=== PATIENT | male | born 1950 | race Caucasian/White ===

== ENCOUNTER → 2016-02-27 | Outpatient (CLI) | payer MEDICARE, OTHER ==
--- NOTE | 2016-02-27 12:30 | XR ---
EXAMINATION TYPE: XR chest 2V DATE OF EXAM: 02/27/2016 11:37 AM COMPARISON: None HISTORY: 65-year-old male with cough TECHNIQUE: Frontal and lateral views FINDINGS: The cardiomediastinal silhouette, aorta, and pulmonary vasculature are within normal limits. There is focal airspace opacity in the right upper lobe marginated by the minor fissure. Some surgical clips noted in the left axilla. Remainder of the lungs and pleural spaces are clear. IMPRESSION: Right upper lobe airspace disease suspicious for pneumonia. Follow-up after treatment to ensure resol ution.
== END | disposition home or self-care (01) ==
LOC: RADXRMAIN 11:08
PROVIDERS: ATTEND Family Medicine
DX: R05 Cough (principal)
CPT/HCPCS: 71020

== ENCOUNTER 2017-04-28 08:23 | Day surgery (SDC) | payer MEDICARE, OTHER ==
[2017-04-26 12:27] VITALS: BMI 28.1
[~2017-04-28 08:23] MED LIST: LACTATED RINGERS 1,000 ML IV SCH
[2017-04-28 08:43] VITALS: RESP 16; TEMP 96.8
[2017-04-28] MEDS ORDERED: LIDOCAINE 1% 20 ML VIAL (10MG/ML) FOR IV START INTRADERMA ONE (08:50)
[2017-04-28 08:51] LABS: Glucose,Whole Blood 175 mg/dL (75-99)
--- NOTE | 2017-04-28 08:55 | P.GSHP ---
History of Present Illness H&P Date: 04/28/17 CHIEF COMPLAINT: Colon screen HISTORY OF PRESENT ILLNESS: The patient is a 67-year-old male who presents for colon screen. Lower endoscopy was offered for further evaluation and management. PAST MEDICAL HISTORY: Please see list. PAST SURGICAL HISTORY: Please see list. MEDICATIONS: Please see list. ALLERGIES: Please see list. SOCIAL HISTORY: No illicit drug use FAMILY HISTORY: No reports of Crohn disease or ulcerative colitis. REVIEW OF ORGAN SYSTEMS: CONSTITUTIONAL: No reports of fevers or chills. PHYSICAL EXAM: VITAL SIGNS: Stable GENERAL: Well-developed pleasant in no acute distress. HEENT: No scleral icterus. Extraocular movements grossly intact. Moist buccal mucosa. NECK: Supple without lymphadenopathy. CHEST: Unlabored respirations. Equal bilateral excursions. CARDIOVASCULAR: Regular rate and rhythm. Distal 2+ pulses. ABDOMEN: Soft, nontender, nondistended. MUSCULOSKELETAL: No clubbing, cyanosis, or edema. ASSESSMENT: 1. Colon screen. PLAN: 1. Recommend proceeding with a lower endoscopy Past Medical History Past Medical History: Cancer, COPD, Diabetes Mellitus, Hyperlipidemia, Pneumonia Additional Past Medical History / Comment(s): hx. rectal cancer 12 yrs. 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 frequent pneumonia-last time 2016, hand tremors History of Any Multi-Drug Resistant Organisms: None Reported Past Surgical History: Appendectomy, Bowel Resection Additional Past Surgical History / Comment(s): penile surg., colostomy Past Anesthesia/Blood Transfusion Reactions: No Reported Reaction Smoking Status: Former smoker - Past Family History Brother(s) Family Medical History: Cancer Sister(s) Family Medical History: Cancer Medications and Allergies Home Medications Medication Instructions Recorded Confirmed Type Aspirin 81 mg PO DAILY 04/26/17 04/28/17 History glyBURIDE,MICRONIZED [Glynase] 18 mg PO BID 04/26/17 04/28/17 History metFORMIN HCL [Glucophage] 1,000 mg PO BID 04/26/17 04/28/17 History sitaGLIPtin [Januvia] 25 mg PO BID 04/26/17 04/28/17 History Loratadine [Claritin] 10 mg PO DAILY 04/27/17 04/28/17 History Simvastatin [Zocor] 10 mg PO HS 04/27/17 04/28/17 History Allergies Allergy/AdvReac Type Severity Reaction Status Date / Time No Known Allergies Allergy Verified 04/26/17 12:02 Surgical - Exam Vital Signs Temp Pulse Resp BP Pulse Ox 96.8 F L 89 16 145/83 96 04/28/17 08:35 04/28/17 08:35 04/28/17 08:35 04/28/17 08:35 04/28/17 08:35 Results - Labs Abnormal Lab Results - Last 24 Hours (Table) 04/28/17 Range/Units 08:47 POC Glucose (mg/dL) 175 H (75-99) mg/dL
[2017-04-28] MEDS ORDERED: PROPOFOL 10 MG/ML 20 ML VIAL IV ONE (09:19)
--- NOTE | 2017-04-28 09:43 | P.PCN ---
Date of Procedure: 04/28/17 Description of Procedure: PREOPERATIVE DIAGNOSIS: History of rectal cancer Descending colostomy status Colonoscopy surveillance POSTOPERATIVE DIAGNOSIS: History of rectal cancer Descending colostomy status Colonoscopy surveillance OPERATION: Colonoscopy through descending colostomy to appendiceal orifice. SURGEON: Yanira Moreau MD. ANESTHESIA: MAC. INDICATIONS: The patient is a 67-year-old male who presents for colonoscopy following rectal cancer and descending colostomy, 2013. Benefits and risks were described and informed consent was obtained. DESCRIPTION OF PROCEDURE: The patient had undergone Gatorade, MiraLAX and Dulcolax prep. He had been brought into the operating room and laid supine. The stoma appliance was removed. An Olympus colonoscope was advanced through the descending colostomy to the appendiceal orifice. The prep was excellent with clear visualization of the mucosal folds. The scope was removed with visualization of each mucosal fold. No scattered diverticulosis was encountered. No colonic polyps were found. No evidence of focal colitis was found. The colon was desufflated. The patient was transitioned in the left lateral decubitus position where along the previous anus, no palpable tumors were identified. His stoma appliance was applied. The patient had tolerated the procedure well. Withdrawal time was over 6 minutes. FINDINGS: No arteriovenous malformations. No adenomatous polyps. No focal colitis. RECOMMENDATIONS: Lower endoscopy in one year, 2019. Plan - Discharge Summary New Discharge Prescriptions: No Action sitaGLIPtin [Januvia] 25 mg PO BID metFORMIN HCL [Glucophage] 1,000 mg PO BID glyBURIDE,MICRONIZED [Glynase] 18 mg PO BID Aspirin 81 mg PO DAILY Simvastatin [Zocor] 10 mg PO HS Loratadine [Claritin] 10 mg PO DAILY Discharge Medication List Aspirin 81 mg PO DAILY 04/26/17 [History] glyBURIDE,MICRONIZED [Glynase] 18 mg PO BID 04/26/17 [History] metFORMIN HCL [Glucophage] 1,000 mg PO BID 04/26/17 [History] sitaGLIPtin [Januvia] 25 mg PO BID 04/26/17 [History] Loratadine [Claritin] 10 mg PO DAILY 04/27/17 [History] Simvastatin [Zocor] 10 mg PO HS 04/27/17 [History]
[2017-04-28 10:01] VITALS: BP 128/68; PULSE 80
== END 2017-04-28 10:17 | disposition home or self-care (01) ==
LOC: ORWHC2ENDO 08:23
PROVIDERS: ATTEND Surgery Plastic and Reconstructive Surgery
DX: Z12.11 Encounter for screening for malignant neoplasm of colon (principal); Z85.048 Personal history of other malignant neoplasm of rectum, rectosigmoid junction, and anus; Z93.3 Colostomy status; J44.9 Chronic obstructive pulmonary disease, unspecified; E78.5 Hyperlipidemia, unspecified; Z85.59 Personal history of malignant neoplasm of other urinary tract organ; E11.9 Type 2 diabetes mellitus without complications; Z79.84 Long term (current) use of oral hypoglycemic drugs; Z87.891 Personal history of nicotine dependence; Z79.82 Long term (current) use of aspirin; Z79.899 Other long term (current) drug therapy
CPT/HCPCS: 44388; J2704

== ENCOUNTER → 2017-06-04 | Outpatient (CLI) | payer MEDICARE, OTHER ==
[2017-06-04 11:08] LABS: ALT 18 U/L (21-72); AST 15 U/L (17-59); Alkaline Phosphatase 51 U/L (38-126); Anion Gap 10 mmol/L; Blood Urea Nitrogen 18 mg/dL (9-20); Calcium 9.5 mg/dL (8.4-10.2); Carbon Dioxide 27 mmol/L (22-30); Chloride 102 mmol/L (98-107); Glucose 186 mg/dL (74-99); Potassium 4.6 mmol/L (3.5-5.1); Sodium 139 mmol/L (137-145); Total Bilirubin 0.4 mg/dL (0.2-1.3); Total Protein 6.3 g/dL (6.3-8.2)
[2017-06-04 11:23] LABS: T4, Free (Free Thyroxine) 0.93 ng/dL (0.78-2.19)
== END | disposition home or self-care (01) ==
LOC: LABWHC1 10:04
PROVIDERS: ATTEND Psychiatry & Neurology Neurology
DX: R25.1 Tremor, unspecified (principal)
CPT/HCPCS: 36415; 80053; 82390; 82525; 84439; 84443

== ENCOUNTER → 2020-01-19 | Outpatient (CLI) | payer MEDICARE ==
[2020-01-19 16:11] LABS: African American GFR (CKD) >90 (>60 ml/min/1.73 sqM); Blood Urea Nitrogen 9 mg/dL (9-20); Non-African American GFR(CKD) >90 (>60 ml/min/1.73 sqM)
--- NOTE | 2020-01-19 22:22 | CT ---
EXAMINATION TYPE: CT chest w con DATE OF EXAM: 01/19/2020 COMPARISON: None HISTORY: Chronic cough. CT DLP: 266.6 mGycm, Automated exposure control for dose reduction was used. CONTRAST: Performed injected with 100ml mL of Isovue 300. TECHNIQUE: Axial images were obtained at 5 mm thick sections. Reconstructed images are reviewed on Drimki computer in the coronal plane. FINDINGS: Portion of the thyroid visualized is normal. There is a 1.3 cm groundglass opacity in the posterior right lung. Additional workup is recommended w ith PET CT. Series 4 image 35. No enlarged mediastinal or hilar adenopathy is evident. The ascending aorta diameter at the level o f the main pulmonary artery is 3.6 cm. The main pulmonary artery diameter at the bifurcation is 3.[address] sections are obtained through the upper abdomen. Abdomen is essentially unremarkable. IMPRESSIONS: 1. Groundglass opacity posterior left midlung. Additional workup with PET CT is recommended.
== END | disposition home or self-care (01) ==
LOC: RADCTMAIN 15:41
PROVIDERS: ATTEND Internal Medicine
DX: R91.8 Other nonspecific abnormal finding of lung field (principal); R05 Cough
CPT/HCPCS: 82565; 84520; 71260; 36415; Q9967

== ENCOUNTER → 2020-02-10 | Outpatient (CLI) | payer MEDICARE ==
--- NOTE | 2020-02-10 13:03 | PE ---
EXAMINATION TYPE: PET CT fusion skull to thigh DATE OF EXAM: 02/10/2020 COMPARISON: Chest CT January 19, 2020 HISTORY: Solitary pulmonary nodule TECHNIQUE: Following the intravenous administration of mCi of F-18 FDG, whole body images are perfor med from the skull base to the midthigh. Images are reviewed on the computer in the coronal, axial, and sagittal planes. Reconstructed rotating images are created on independent workstation and review ed on the computer. A noncontrast CT is performed in conjunction with the PET scan. SCAN: Initial Scan FINDINGS: SKULL BASE AND NECK: No suspicious hypermetabolic uptake. CHEST, MEDIASTINUM, AND HILAR REGION: Mild underlying emphysematous change redemonstrated. Area of 1. 3 cm groundglass opacity posterior right upper lung shows some improvement with a residual 7 mm groun dglass nodule axis image 87. No suspicious hypermetabolic uptake. No abnormal hypermetabolic uptake i n the entire thorax. ABDOMEN AND PELVIS: Normal excretion. No adrenal masses. No suspicious hypermetabolic uptake. OSSEOUS STRUCTURES: No suspicious hypermetabolic uptake. OTHER CT: Judu-ca-adbdfuph calcified plaque bilateral carotid bulb level. Tiny pericardial effusion. Coronary artery calcification and stents. Left mid abdominal ostomy. Moderate calcified plaque of the abdominal aorta. Mildly enlarged prostate bulging on bladder base. Multilevel spurring in the spine. Underlying scoliotic curvature. Facet arthropathy lower lumbar leve ls. IMPRESSION: No suspicious hypermetabolic uptake to suggest neoplasm. Consider follow-up CT in 6-12 mo nths time to reassess greater than 6 mm groundglass nodule as per Fleischner Society recommendations.
== END | disposition home or self-care (01) ==
LOC: RADPETMAIN 09:09
PROVIDERS: ATTEND Internal Medicine
DX: R91.1 Solitary pulmonary nodule (principal)
CPT/HCPCS: 78815; A9552

== ENCOUNTER → 2021-03-01 | Outpatient (CLI) | payer MEDICARE ==
--- NOTE | 2021-03-01 22:54 | MR ---
MR brain without contrast HISTORY: Memory loss Multiplanar multisequence imaging through the brain No comparisons There is no restricted diffusion. Cortical atrophy is present. Confluent and scattered hyperintensiti es present in the periventricular and subcortical white matter on inversion recovery T2-weighted sequ ences. Hyperintensity also present within the kenzie. There is no hemorrhage or hydrocephalus. Corpus c allosum, pituitary, cervical medullary junction are within normal limits. There are expected vascular flow voids. Mild inflammatory change present within the ethmoid air cells. The orbits show symmetric appearance. Cerebellopontine angles are unremarkable. IMPRESSION: Age-related changes of atrophy and chronic small vessel ischemia. Mild sinus disease.
== END | disposition home or self-care (01) ==
LOC: RADMRIMAIN 14:54
PROVIDERS: ATTEND Psychiatry & Neurology Neurology
DX: I67.82 Cerebral ischemia (principal); G31.9 Degenerative disease of nervous system, unspecified
CPT/HCPCS: 70551

== ENCOUNTER 2022-08-20 06:37 | Day surgery (SDC) | payer MEDICARE ==
[2022-08-17 13:50] VITALS: BMI 23.6
[2022-08-20 07:12] VITALS: TEMP 97.7
[2022-08-20 07:12] LABS: Glucose,Whole Blood 157 mg/dL (70-110)
[2022-08-20] MEDS ORDERED: LACTATED RINGERS 1,000 ML IV ONE ×2 (07:12)
--- NOTE | 2022-08-20 07:36 | P.GSHP ---
History of Present Illness H&P Date: 08/20/22 CHIEF COMPLAINT: GERD and colon screen HISTORY OF PRESENT ILLNESS: The patient is a 72-year-old male who presents with gastroesophageal reflux disease and need for colon screen. Upper and lower endoscopy were offered for further evaluation and management. PAST MEDICAL HISTORY: Please see list. PAST SURGICAL HISTORY: Please see list. MEDICATIONS: Please see list. ALLERGIES: Please see list. SOCIAL HISTORY: No illicit drug use FAMILY HISTORY: No reports of Crohn disease or ulcerative colitis. REVIEW OF ORGAN SYSTEMS: CONSTITUTIONAL: No reports of fevers or chills. GI: Denies any blood in stools or constipation. PHYSICAL EXAM: VITAL SIGNS: Stable GENERAL: Well-developed pleasant in no acute distress. HEENT: No scleral icterus. Extraocular movements grossly intact. Moist buccal mucosa. NECK: Supple without lymphadenopathy. CHEST: Unlabored respirations. Equal bilateral excursions. CARDIOVASCULAR: Regular rate and rhythm. Distal 2+ pulses. ABDOMEN: Soft, nondistended. MUSCULOSKELETAL: No clubbing, cyanosis, or edema. ASSESSMENT: 1. Gastroesophageal reflux disease 2. Colon screen. PLAN: 1. Recommend proceeding with an upper and lower endoscopy Past Medical History Past Medical History: Cancer, COPD, Diabetes Mellitus, Hyperlipidemia, Pneumonia Additional Past Medical History / Comment(s): hx. rectal cancer 12 yrs. 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 frequent pneumonia-last time 2016, hand tremors History of Any Multi-Drug Resistant Organisms: None Reported Past Surgical History: Appendectomy, Bowel Resection Additional Past Surgical History / Comment(s): penile surg., colostomy. COLONOSCOPY Past Anesthesia/Blood Transfusion Reactions: No Reported Reaction Smoking Status: Former smoker - Past Family History Brother(s) Family Medical History: Cancer Sister(s) Family Medical History: Cancer Medications and Allergies Home Medications Medication Instructions Recorded Confirmed Type metFORMIN HCL [Glucophage] 1,000 mg PO BID 04/26/17 08/17/22 History Simvastatin [Zocor] 10 mg PO HS 04/27/17 08/17/22 History Cholecalciferol [Vitamin D3 (25 25 mcg PO DAILY 08/17/22 08/17/22 History Mcg = 1000 Iu)] Escitalopram [Lexapro] 10 mg PO DAILY 08/17/22 08/17/22 History Propranolol HCl [Inderal] 60 mg PO DAILY 08/17/22 08/17/22 History glipiZIDE [Glucotrol] 5 mg PO AC-BID 08/17/22 08/17/22 History sitaGLIPtin [Januvia] 50 mg PO BID 08/17/22 08/17/22 History Allergies Allergy/AdvReac Type Severity Reaction Status Date / Time No Known Allergies Allergy Verified 08/17/22 13:38 Surgical - Exam Vital Signs Temp Pulse Resp BP Pulse Ox 97.7 F 105 H 18 135/84 95 08/20/22 07:10 08/20/22 07:10 08/20/22 07:10 08/20/22 07:10 08/20/22 07:10 Results - Labs Abnormal Lab Results - Last 24 Hours (Table) 08/20/22 Range/Units 07:07 POC Glucose (mg/dL) 157 H (70-110) mg/dL
[2022-08-20] MEDS ORDERED: PROPOFOL 10 MG/ML 20 ML VIAL IV ONE (07:49)
[2022-08-20 08:50] VITALS: BP 120/73; PULSE 92; RESP 20
--- NOTE | 2022-08-20 08:51 | P.PCN ---
Date of Procedure: 08/20/22 Description of Procedure: PREOPERATIVE DIAGNOSIS: GI bleed POSTOPERATIVE DIAGNOSIS: Gastric ulcers with bleeding, acute Gastritis with bleeding Duodenal polyp Diaphragmatic hiatal hernia OPERATION: Esophagogastroduodenoscopy with biopsies along antrum and duodenum SURGEON: Yanira Moreau MD ANESTHESIA: MAC. INDICATIONS: The patient is a 72-year-old male who presents with epigastric pain and GI bleed. Benefits and risks of the procedure were described. Informed consent was obtained. DESCRIPTION: The patient was brought into the endoscopy suite and laid in the left lateral decubitus position. An Olympus gastroscope was passed along the posterior oropharynx down to the distal esophagus where the squamocolumnar junction was encountered at 40 cm from the incisors. The stomach was entered and no bile reflux was found. Additional findings are listed below. Biopsies with cold forceps were obtained of the antrum. The first through third portion of the duodenum was examined. Retroflexion of the scope confirmed Hill grade 3 lower esophageal valve. The squamocolumnar junction demonstrated LA grade B erosive esophagitis. The stomach was desufflated. The patient tolerated the procedure well. FINDINGS: Squamocolumnar junction 40 cm from the incisors. Diaphragmatic hiatus at 43 cm. Hiatal hernia, 3 cm Hill grade 4 lower esophageal valve. LA grade C erosive esophagitis. Biopsies obtained of the duodenum. Chronic gastritis with biopsies obtained. Possible gastric ulcers identified. Duodenum polyps at first portion of duodenum, biopsies obtained RECOMMENDATIONS: Recommend Protonix 40 mg daily Recommend Carafate 40 mg twice daily
--- NOTE | 2022-08-20 08:52 | P.PCN ---
Date of Procedure: 08/20/22 Description of Procedure: PREOPERATIVE DIAGNOSIS: History of rectal cancer Descending colostomy status Colonoscopy surveillance POSTOPERATIVE DIAGNOSIS: History of rectal cancer Descending colostomy status Colonoscopy surveillance Varicose veins of the colon OPERATION: Colonoscopy through descending colostomy to appendiceal orifice. Colonoscopy with snare polypectomy SURGEON: Yanira Moreau MD. ANESTHESIA: MAC. INDICATIONS: The patient is a 72-year-old male who presents for colonoscopy following rectal cancer and descending colostomy. Benefits and risks were described and informed consent was obtained. DESCRIPTION OF PROCEDURE: The patient had undergone Suprep. He had been brought into the operating room and laid supine. The stoma appliance was removed. An Olympus colonoscope was advanced through the descending colostomy to the appendiceal orifice. The prep was good. The scope was removed with visualization of each mucosal fold. No scattered diverticulosis was encountered. No colonic polyps were found. No evidence of focal colitis was found. The colon was desufflated. The patient was transitioned in the left lateral decubitus position where along the previous anus, no palpable tumors were identified. His stoma appliance was applied. The patient had tolerated the procedure well. Withdrawal time was over 6 minutes. FINDINGS: Aronchik preparation quality scale 2 (1-5) No arteriovenous malformations. Removal of 2 polyps: - Snare polypectomy at ascending colon, 7 mm, adenoma Dilated venous vessels of the descending colon. No focal colitis. Anus absent due to prior cancer. RECOMMENDATIONS: Lower endoscopy in 2 years, 2024 Plan - Discharge Summary Discharge Rx Participant: No New Discharge Prescriptions: New Pantoprazole [Protonix] 40 mg PO DAILY #14 tab Sucralfate [Carafate] 1 gm PO BID #30 tablet Continue metFORMIN HCL [Glucophage] 1,000 mg PO BID Simvastatin [Zocor] 10 mg PO HS Escitalopram [Lexapro] 10 mg PO DAILY Propranolol HCl [Inderal] 60 mg PO DAILY glipiZIDE [Glucotrol] 5 mg PO AC-BID Cholecalciferol [Vitamin D3 (25 Mcg = 1000 Iu)] 25 mcg PO DAILY sitaGLIPtin [Januvia] 50 mg PO BID Discharge Medication List metFORMIN HCL [Glucophage] 1,000 mg PO BID 04/26/17 [History] Simvastatin [Zocor] 10 mg PO HS 04/27/17 [History] Cholecalciferol [Vitamin D3 (25 Mcg = 1000 Iu)] 25 mcg PO DAILY 08/17/22 [History] Escitalopram [Lexapro] 10 mg PO DAILY 08/17/22 [History] Propranolol HCl [Inderal] 60 mg PO DAILY 08/17/22 [History] glipiZIDE [Glucotrol] 5 mg PO AC-BID 08/17/22 [History] sitaGLIPtin [Januvia] 50 mg PO BID 08/17/22 [History] Pantoprazole [Protonix] 40 mg PO DAILY #14 tab 08/20/22 [Rx] Sucralfate [Carafate] 1 gm PO BID #30 tablet 08/20/22 [Rx] Follow up Appointment(s)/Referral(s): Yanira Moreau MD [STAFF PHYSICIAN] - 10/06/22 10:45 am Patient Instructions/Handouts: *Surgery [facility] - (Anesthesia) Discharge Instructions Outpatient Surgery, Peptic Ulcer (DC), Diet for Stomach Ulcers and Gastritis (ED), Colorectal Polyps (GEN) Activity/Diet/Wound Care/Special Instructions: Repeat colonoscopy 2 years, 2024 Discharge Disposition: HOME SELF-CARE
== END 2022-08-20 09:30 | disposition home or self-care (01) ==
LOC: ORWHC2ENDO 06:37
PROVIDERS: ATTEND Surgery Plastic and Reconstructive Surgery
DX: Z12.11 Encounter for screening for malignant neoplasm of colon (principal); D12.2 Benign neoplasm of ascending colon; Z85.048 Personal history of other malignant neoplasm of rectum, rectosigmoid junction, and anus; Z93.3 Colostomy status; I86.8 Varicose veins of other specified sites; K25.0 Acute gastric ulcer with hemorrhage; K29.71 Gastritis, unspecified, with bleeding; K31.7 Polyp of stomach and duodenum; K44.9 Diaphragmatic hernia without obstruction or gangrene; K21.9 Gastro-esophageal reflux disease without esophagitis; J44.9 Chronic obstructive pulmonary disease, unspecified; E11.9 Type 2 diabetes mellitus without complications; E78.5 Hyperlipidemia, unspecified; Z92.21 Personal history of antineoplastic chemotherapy; Z92.3 Personal history of irradiation; Z90.49 Acquired absence of other specified parts of digestive tract; Z87.891 Personal history of nicotine dependence; Z79.84 Long term (current) use of oral hypoglycemic drugs; Z79.899 Other long term (current) drug therapy
CPT/HCPCS: 88305; 44394; 43239; J2704

== ENCOUNTER → 2023-01-25 | Outpatient (CLI) | payer MEDICARE ==
[2023-01-25 11:22] LABS: African American GFR (CKD) >90 (>60 ml/min/1.73 sqM); Blood Urea Nitrogen 16 mg/dL (9-20); Non-African American GFR(CKD) >90 (>60 ml/min/1.73 sqM)
--- NOTE | 2023-01-26 13:07 | CT ---
EXAMINATION TYPE: CT chest w con CT DLP: 358.3 mGycm, Automated exposure control for dose reduction was used. DATE OF EXAM: 01/25/2023 11:49 AM COMPARISON: 2V chest x-ray 01/14/2023. PET CT 02/10/2020. CT chest 01/19/2020. CLINICAL INDICATION:Male, 72 years old with history of R91.9 SOLITARY PULMONARY NODULE; PHH, lung nod ule. Technologist reports lung nodule, cough, wheezing, history of colon cancer TECHNIQUE: Multiple axial images were obtained through the chest. Sagittal and coronal reformats were created for review. Contrast used:100 mL of Isovue 300 with IV Contrast (None if empty) Oral contrast used: (None if empty) FINDINGS: LOWER NECK: No significant findings. HEART: Upper normal in size.. Moderate to heavy coronary arterial calcifications and/or stents. Trace pericardial effusion. VASCULATURE: Atherosclerotic calcifications are present throughout the aorta and its branches. No a neurysm or dissection. Grossly preserved enhancement of the pulmonary arteries in the limits of the e xam. The main pulmonary artery is mildly enlarged at 3.1 cm, this can be seen with pulmonary hyperten rajni. MEDIASTINUM: No gross evidence of adenopathy. LUNGS/ PLEURA: Moderate emphysematous changes, prominently biapical. Mild bibasilar scarring or subse gmental atelectasis. No evidence of lung mass or acute infiltrate. There are small reticulonodular ch anges at the lung apices with the appearance of scarring. In the right lower lobe there is a 4 mm nod ule image 41 series 5 which appears relatively radiodense and might be a granuloma; this is also stab le since 2020 consistent with a benign lesion. In the left lower lobe, tiny 2 mm subpleural nodule im age 51 is not clearly seen in 2020 however no specific follow-up is recommended given the small size. Also in 2020, there had been a 1.3 cm groundglass opacity in the left lower lobe, this has completel y resolved since then. AIRWAY: Central airways patent and unremarkable. MUSCULOSKELETAL: Mild degenerative changes of the dorsal spine. No acute abnormality or lytic/blasti c bone lesion. SOFT TISSUES: Surgical clips in the left axilla. Nonenlarged axillary nodes. UPPER ABDOMEN: Visualized liver shows no evidence of mass. Mildly thickened appearance of the adrenal s without evidence of mass, hyperplasia is a consideration. Mild/moderate atherosclerotic disease of the upper abdominal aorta, with mild to moderate stenosis at the origin of the celiac artery. SMA is widely patent. Right renal artery is patent. Proximal left renal artery shows mild/moderate stenosis. No aortic aneurysm shown. IMPRESSION: 1. Moderate biapical pulmonary emphysema. 2. A 1.3 cm groundglass opacity in the left lower lobe identified in 2019 has completely resolved si nce then. A stable 4 mm nodule in the right lower lobe is consistent with benignity, likely granuloma . 3. Tiny 2 mm nodule in the left lower lobe, not clearly present before. However no specific follow-u p is recommended given its small size. 4. There is otherwise no evidence of malignancy/metastasis or acute process in the chest. 5. Other chronic and likely incidental findings, as described above.
== END | disposition home or self-care (01) ==
LOC: RADCTMAIN 10:44
PROVIDERS: ATTEND Internal Medicine
DX: J43.9 Emphysema, unspecified (principal); R91.8 Other nonspecific abnormal finding of lung field
CPT/HCPCS: 82565; 84520; 71260; 36415; Q9967

== ENCOUNTER 2023-04-19 06:12 | Day surgery (SDC) | payer MEDICARE, OTHER ==
[2023-04-15 11:20] VITALS: BMI 25.1
[~2023-04-19 06:12] MED LIST changes: -LACTATED RINGERS 1,000 ML IV SCH; +LIDOCAINE 1% (10MG/ML) FOR IV START INTRADERMA PRN
[2023-04-19] MEDS: LACTATED RINGERS 1,000 ML IV SCH (06:49)
[2023-04-19] MEDS ORDERED: LIDOCAINE 1% INJ 10MG/ML (20 ML MDV) ONE (07:11)
[2023-04-19] MEDS ORDERED: PROPOFOL 10 MG/ML 20 ML VIAL IV ONE (07:11)
[2023-04-19 07:16] LABS: Glucose,Whole Blood 180 mg/dL (70-110)
[2023-04-19 07:38] VITALS: RESP 16; TEMP 97.8
[2023-04-19 07:46] LABS: Glucose,Whole Blood 150 mg/dL (70-110)
--- NOTE | 2023-04-19 07:51 | OP ---
OPERATIVE REPORT DATE OF SERVICE : PROCEDURE PERFORMED: Bone marrow biopsy with aspiration under local and general sedation. DESCRIPTION OF PROCEDURE: After being placed in the left lateral decubitus position, the right posterior iliac spine was palpated, followed by palpation of the right posterior iliac crest, following administration of general sedation. The area was sterilized with three swabs of Betadine and three swabs of alcohol, sterile drape was then placed. 10 mL of 1% lidocaine was applied to the periosteum. A 0.3 cm incision was then made into the skin, 4-inch Jamshidi needle was then advanced through the periosteum and then into the bone marrow, where approximately 18 mL of aspirate was obtained along with a 0.7 cm core sample. These will be sent for morphology, flow cytometry, cytogenetics, FISH, and NGS testing. We will follow up on the results in clinic. There was less than 1 mL of blood loss. Mr. Tam tolerated the procedure without complications and was returned to postop in stable condition. PREOPERATIVE DIAGNOSIS: Thrombocytopenia. POSTOPERATIVE DIAGNOSIS: Thrombocytopenia. MMODL / IJN: [id number] /
[2023-04-19 08:03] LABS: HGB 12.4 gm/dL (13.0-17.5); MCHC 32.5 g/dL (31.0-37.0); MCV 89.3 fL (80.0-100.0); Mean Platelet Volume 11.6; RBC 4.26 m/uL (4.30-5.90); RDW 15.1 % (11.5-15.5); WBC 9.1 k/uL (3.8-10.6)
[2023-04-19 08:13] VITALS: BP 136/85; PULSE 67
[2023-04-19 08:24] LABS: Platelet Count 98 k/uL (150-450)
[2023-04-19 08:29] LABS: Reticulocyte % 1.4 % (0.5-2.0)
[2023-04-19 08:48] LABS: HGB 12.4 gm/dL (13.0-17.5); MCHC 32.5 g/dL (31.0-37.0); MCV 89.3 fL (80.0-100.0); Platelet Count 98 k/uL (150-450); RBC 4.26 m/uL (4.30-5.90); RDW 15.1 % (11.5-15.5); WBC 9.1 k/uL (3.8-10.6)
[2023-04-19 08:49] LABS: Reticulocyte % 1.4 % (0.5-2.0)
[2023-04-19 09:05] LABS: Eosinophils # (M) 0.09 k/uL (0-0.7); Lymphocytes # (M) 1.73 k/uL (1.0-4.8); Monocytes # (M) 1.55 k/uL (0-1.0); Neutrophils # (M) 5.73 k/uL (1.3-7.7); Neutrophils % (M) 63 %; Nucleated Red Blood Cells 0 /100 WBC (0-0); RBC Morphology Normal; Total Cells Counted 100
== END 2023-04-19 08:20 | disposition home or self-care (01) ==
LOC: OR 06:12
PROVIDERS: ATTEND Internal Medicine
DX: D69.6 Thrombocytopenia, unspecified (principal); E11.9 Type 2 diabetes mellitus without complications; F03.90 Unspecified dementia, unspecified severity, without behavioral disturbance, psychotic disturbance, mood disturbance, and anxiety; Z79.84 Long term (current) use of oral hypoglycemic drugs; Z85.6 Personal history of leukemia; Z79.899 Other long term (current) drug therapy
CPT/HCPCS: 85025; 85045; 38222; J2001; J2704

== ENCOUNTER → 2023-05-14 | Outpatient (CLI) | payer OTHER ==
--- NOTE | 2023-05-14 09:51 | US ---
EXAMINATION TYPE: US abdomen complete DATE OF EXAM: 05/14/2023 COMPARISON: NONE CLINICAL INDICATION: Male, 73 years old with history of C20 RECTAL CA; TECHNIQUE: Multiple sonographic images of the abdomen are obtained. FINDINGS: EXAM MEASUREMENTS: Liver Length: 17.1 cm Gallbladder Wall: 0.2 cm CBD: 0.3 cm Spleen: 8.8 cm Right Kidney: 10.4 x 5.6 x 4.7 cm Left Kidney: 11.4 x 5.8 x 5.3 cm Pancreas: visualized portions wnl, limited by overlying midline bowel gas Liver: wnl Gallbladder: wnl Evidence for sonographic Caputo's sign: no CBD: visualized portions wnl, limited by overlying bowel gas Spleen: visualized portions wnl, limited by overlying midline bowel gas Right Kidney: wnl Left Kidney: wnl Upper IVC: wnl Abd Aorta: visualized portions wnl, limited by overlying midline bowel gas The liver is homogenous. The intrahepatic portion of the IVC and proximal abdominal aorta are within normal limits. There is no evidence of cholelithiasis. Common bile duct is unremarkable. The visu alized portions of the pancreas are homogenous. The spleen is unremarkable. Kidneys are symmetric a nd free of hydronephrosis. No renal lesions are seen. IMPRESSION: No discrete abnormality seen.
== END | disposition home or self-care (01) ==
LOC: RADUSWWP 09:12
PROVIDERS: ATTEND Internal Medicine Hematology & Oncology
DX: C20 Malignant neoplasm of rectum (principal); D72.821 Monocytosis (symptomatic); D69.6 Thrombocytopenia, unspecified; E11.9 Type 2 diabetes mellitus without complications
CPT/HCPCS: 76700

== ENCOUNTER → 2024-04-08 | Outpatient (CLI) | payer OTHER ==
[2024-04-08 09:56] LABS: Appearance,Urine Clear (Clear); Bilirubin,Urine Negative (Negative); Blood,Urine Small (Negative); Color,Urine Light Yellow; Glucose,Urine (UA) 1+ (Negative); Ketones,Urine Trace (Negative); Leukocyte Esterase,Urine Negative (Negative); Mucus,Urine Rare /hpf; Nitrite,Urine Negative (Negative); Protein,Urine Negative (Negative); RBC,Urine 5 /hpf (0-5); Specific Gravity,Urine 1.012 (1.001-1.035); Urobilinogen,Urine <2.0 mg/dL (<2.0); WBC,Urine 2 /hpf (0-5)
[2024-04-09 07:15] LABS: Blood Urea Nitrogen 14.7 mg/dL (9.0-27.0); Calcium 9.4 mg/dL (8.7-10.3); Carbon Dioxide 22.3 mmol/L (21.6-31.8); Chloride 97 mmol/L (96-109); Glucose 209 mg/dL (70-110); Potassium 4.3 mmol/L (3.5-5.5); Sodium 134 mmol/L (135-145)
== END | disposition home or self-care (01) ==
LOC: LABWHC1 08:39
PROVIDERS: ATTEND Urology
DX: E11.69 Type 2 diabetes mellitus with other specified complication (principal); N48.9 Disorder of penis, unspecified
CPT/HCPCS: 36415; 80048; 81001; 87086

== ENCOUNTER → 2024-04-14 | Outpatient (CLI) | payer OTHER ==
[2024-04-14 16:17] LABS: HCT 36.5 % (39.6-50.0); HGB 11.6 g/dL (13.0-17.0); Immature Platelet Fraction 20.9 % (1.1-6.1); MCH 27.8 pg (27.0-32.0); MCHC 31.8 g/dL (32.0-37.0); MCV 87.3 FL (80.0-97.0); NRBC Per 100 WBC 0 X 10*3/uL (0.00-0.01); Platelet Count 68 X 10*3/uL (140-440); RBC 4.18 X 10*6/uL (4.40-5.60); RBC Morphology Normal (Normal); RDW 14.6 % (11.5-14.5); WBC 12.75 X 10*3/uL (4.50-10.00)
== END | disposition home or self-care (01) ==
LOC: LABWHC1 10:08
PROVIDERS: ATTEND Physician Assistant
DX: E11.69 Type 2 diabetes mellitus with other specified complication (principal); N48.9 Disorder of penis, unspecified
CPT/HCPCS: 36415; 83036; 85027